=== PATIENT | female | born 1990 | race Caucasian/White ===

== ENCOUNTER → 2024-09-19 12:10 | Outpatient (REF) | payer OTHER, SELFPAY | LOC: RAD 12:10 | PROVIDERS: ATTENDING PHYSICIAN Physician Assistant | DX: M25.562 Pain in left knee (principal); M25.561 Pain in right knee | CPT/HCPCS: 73564 ==

== ENCOUNTER → 2025-02-05 13:12 | Outpatient (REF) | payer OTHER, SELFPAY | LOC: RAD 13:12 | PROVIDERS: ATTENDING PHYSICIAN Physician Assistant | DX: E04.1 Nontoxic single thyroid nodule (principal); Z80.0 Family history of malignant neoplasm of digestive organs | CPT/HCPCS: 76536 ==